=== PATIENT | female | born 1985 | race Caucasian/White ===

== ENCOUNTER 2019-07-23 11:42 | Emergency (ER) | payer SELFPAY ==
[2019-07-23 12:14] VITALS: BP 103/64; PULSE 72; TEMP 99.5; BMI 32.0
--- NOTE | 2019-07-23 12:44 | PDOC ---
History of Present Illness - General Chief Complaint: Vaginal Bleeding Stated Complaint: LWR ABD PAIN Time Seen by Provider: 07/23/19 12:32 - History of Present Illness Initial Comments: 07/23/19 12:44 CHIEF COMPLAINT: vag bldg in HISTORY OF PRESENT ILLNESS: 34 yo A1 F presents to ED with vaginal bleeding in . LMP was 12/6, patient states she had a positive test last night but began spotting today when she wiped. Patient reports lower abdominal cramping. Patient denies headache, lightheadedness, dizziness, SOB, palpitations. No recent travel or sick contacts. PAST MEDICAL HISTORY: Denies past medical history FAMILY HISTORY: Denies SOCIAL HISTORY: Denies tobacco, alcohol, illicit drug use. SURGICAL HISTORY: Denies ALLERGIES: No known drug allergies REVIEW OF SYSTEMS General/Constitutional: Denies fever or chills. Denies weakness, weight change. HEENT: Denies change in vision. Denies ear pain or discharge. Denies sore throat. Cardiovascular: Denies chest pain or shortness of breath. Respiratory: Denies cough, wheezing, or hemoptysis. Gastrointestinal: Lower abdominal cramping. Denies nausea, vomiting, diarrhea or constipation. Denies rectal bleeding. Genitourinary: Vaginal spotting since this morning. Denies dysuria, frequency, or change in urination. Musculoskeletal: Denies joint or muscle swelling or pain. Denies neck or back pain. Skin: Denies rash or easy bruising. Neurologic: Denies headache, vertigo, loss of consciousness, or loss of sensation. Psychiatric: Denies depression or anxiety. PHYSICAL EXAM General Appearance: Well-appearing, appropriately dressed. No apparent distress. HEENT: EOMI, PERRLA, normal ENT inspection, normal voice, TMs normal, pharynx normal. No conjunctival pallor. No photophobia, scleral icterus. Neck: Supple. Trachea midline. No tenderness, rigidity, carotid bruit, stridor , lymphadenopathy, or thyromegaly. Respiratory/Chest: Lungs CTAB. No shortness of breath, chest tenderness, respiratory distress, accessory muscle use. No crackles, rales, rhonchi, stridor , wheezing, dullness Cardiovascular: RRR. S1, S2. No JVD, murmur, bradycardia, tachycardia. Vascular Pulses: Dorsalis-Pedis (R): 2+, Dorsalis-Pedis (L): 2+ Gastrointestinal/Abdominal: Normal bowel sounds. Abdomen soft, non-distended. No tenderness or rebound tenderness. No organomegaly, pulsatile mass, guarding , hernia, hepatomegaly, splenomegaly. Pelvic: External genitalia normal without lesions. Vaginal vault with bloody discharge. Cervix is long and closed. No cervical motion tenderness. Uterus is nontender and normal in size. Adnexa are nontender and without masses. Lymphatic: No adenopathy, tenderness. Musculoskeletal/Extremities: Normal inspection. FROM of all extremities, normal capillary refill. Pelvis Stable. No CVA tenderness. No tenderness to extremities, pedal edema, swelling, erythema or deformity. Integumentary: Appropriate color, dry, warm. No cyanosis, erythema, jaundice or rash Neurologic: stenographic court reporter II-XII intact. Fully oriented, alert. Appropriate mood/affect. Motor strength 5/5. No appreciable EOM palsy, facial droop or sensory deficit. Past History - Past Medical History Allergies/Adverse Reactions: Allergies Allergy/AdvReac Type Severity Reaction Status Date / Time latex [Latex] Allergy Unknown Verified 07/23/19 12:05 aspirin Allergy Hives Verified 07/23/19 12:05 Asthma: No Cancer: No Cardiac Disorders: No COPD: No Diabetes: No HTN: No Seizures: No Thyroid Disease: No - Reproductive History Is Patient Now?: Yes (#): 5 Para: 3 Cervical CA: No Dysfunctional Uterine Bleeding: No Ectopic : No Endometrial CA: No Polycystic Ovaries: No Therapeutic (s) & number: No Tubal Ligation: No Spontaneous : 1 - Immunization History Immunization Up to Date: Yes - Psycho Social/Smoking Cessation Hx Smoking Status: No Smoking History: Never smoked Have you smoked in the past 12 months: No Number of Cigarettes Smoked Daily: 0 Information on smoking cessation initiated: No Hx Alcohol Use: No Drug/Substance Use Hx: No *Physical Exam - Vital Signs Last Vital Signs Temp Pulse Resp BP Pulse Ox 99.5 F 72 18 103/64 96 07/23/19 12:05 07/23/19 12:05 07/23/19 12:05 07/23/19 12:05 07/23/19 12:05 ED Treatment Course - LABORATORY CBC & Chemistry Diagram: 07/23/19 12:57 07/23/19 12:57 - RADIOLOGY Radiology Studies Ordered: Category Date Time Status TRANSVAGINAL US PREG [US] Stat Ultrasound 07/23/19 12:40 Ordered Medical Decision Making - Medical Decision Making 07/23/19 14:02 34 yo A1 F presents to ED with vaginal bleeding in . -labs, T&S, urine, ct/gc/trich -TVUS 07/23/19 14:42 Patient Rh+, Rhogam not indicated. 07/23/19 15:14 beta 66 Advised patient return in 2 days for repeat beta. Advised patient of signs and symptoms for return to ED. Patient verbalized understanding and agrees to plan. Discharge - Discharge Information Problems reviewed: Yes Clinical Impression/Diagnosis: Threatened in early Condition: Stable Disposition: HOME - Admission No - Follow up/Referral Referrals: Alda Jesus MD [Staff Physician] - - Patient Discharge Instructions Patient Printed Discharge Instructions: DI for Threatened Additional Instructions: As discussed you must return in 48 hours for repeat blood work for further evaluation of your vaginal bleeding in . If you develop a severe vaginal bleeding (more than 1 soaked pad an hour), lightheaded, dizziness, shortness of breath, palpitations or any new or worsening symptoms, please return to the ER. - Post Discharge Activity
[2019-07-23 13:13] LABS: BASO % 0.8 % (0-2.0); EOS % 1.4 % (0-4.5); HEMATOCRIT 41.7 % (32.4-45.2); LYMPH % 32.5 % (8-40); MCH 32.2 pg (25.7-33.7); MCHC 33.7 g/dl (32.0-36.0); MEAN CELL VOLUME 95.5 fl (80-96); MEAN PLT VOLUME 8.6 fl (7.5-11.1); MONO % 6.9 % (3.8-10.2); NEUT % 58.4 % (42.8-82.8); PLATELET COUNT 262 K/MM3 (134-434); RBC 4.37 M/mm3 (3.60-5.2); RDW 12.6 % (11.6-15.6); WHITE BLOOD COUNT 5.7 K/mm3 (4.0-10.0)
[2019-07-23 14:04] LABS: BILIRUBIN,TOTAL 0.4 mg/dL (0.2-1); BLOOD UREA NITROGEN 9.5 mg/dL (7-18); CALCIUM 8.6 mg/dL (8.5-10.1); CREATININE 0.7 mg/dL (0.55-1.3); POTASSIUM 3.7 mmol/L (3.5-5.1); TOT PROT 7.7 g/dl (6.4-8.2)
[2019-07-23 14:20] LABS: EPI CELLS 0.3 /HPF (0-5/HPF); HYALINE CASTS 0 /lpf (0-8); URINE APPEARANCE CLEAR; URINE BACTERIA 5.5 /hpf (NEGATIVE); URINE BILIRUBIN NEGATIVE (NEGATIVE); URINE COLOR YELLOW; URINE GLUCOSE (UA) NEGATIVE (NEGATIVE); URINE KETONE NEGATIVE (NEGATIVE); URINE LEUK ESTERASE NEGATIVE (NEGATIVE); URINE NITRITE NEGATIVE (NEGATIVE); URINE PROTEIN NEGATIVE (NEGATIVE); URINE RBC 0 /hpf (0-4); URINE UROBILINOGEN 0.2 mg/dL (0.2-1.0); URINE WBC 0 /hpf (0-5)
== END 2019-07-23 15:37 | disposition home or self-care (01) ==
LOC: JER 11:42
DX: O26.891 Other specified pregnancy related conditions, first trimester (principal); O20.0 Threatened abortion; Z3A.01 Less than 8 weeks gestation of pregnancy; Z88.6 Allergy status to analgesic agent; Z91.040 Latex allergy status
CPT/HCPCS: 36415; 76817-TC; 80053; 81003; 84702; 85025; 86850; 86900; 86901; 87086; 87491; 87591; 87661; 99282-25

== ENCOUNTER 2019-08-05 16:27 | Emergency (ER) | payer SELFPAY ==
[2019-08-05 16:44] VITALS: BP 131/67; PULSE 68; TEMP 98.1; BMI 25.6
--- NOTE | 2019-08-05 16:44 | PDOC ---
Rapid Medical Evaluation Medical Evaluation: Allergies Allergy/AdvReac Type Severity Reaction Status Date / Time latex [Latex] Allergy Unknown Verified 07/23/19 12:05 aspirin Allergy Hives Verified 07/23/19 12:05 08/05/19 16:37 I have performed a brief in-person evaluation of this patient. The patient presents with a chief complaint of:vaginal bleeding x 3 days w/ abd pain. 7 weeks . (s/p spon AB x 1 ). Seen here on 07/23 for vag bleed with normal labs, beta 66 w/ no e/o on US. States she saw Nguyen Nix today who referred her to ED Pertinent physical exam findings:stable I have ordered the following:labs/US The patient will proceed to the ED for further evaluation Discharge Disposition - Diagnosis Threatened - Referrals - Patient Instructions - Post Discharge Activity
[2019-08-05 17:36] LABS: EPI CELLS 0.5 /HPF (0-5/HPF); HYALINE CASTS 0 /lpf (0-8); URINE APPEARANCE CLEAR; URINE BACTERIA 18.2 /hpf (NEGATIVE); URINE BILIRUBIN NEGATIVE (NEGATIVE); URINE COLOR YELLOW; URINE GLUCOSE (UA) NEGATIVE (NEGATIVE); URINE KETONE NEGATIVE (NEGATIVE); URINE LEUK ESTERASE NEGATIVE (NEGATIVE); URINE NITRITE NEGATIVE (NEGATIVE); URINE PROTEIN NEGATIVE (NEGATIVE); URINE RBC 7 /hpf (0-4); URINE UROBILINOGEN 0.2 mg/dL (0.2-1.0); URINE WBC 0 /hpf (0-5)
[2019-08-05] MEDS ORDERED: ACETAMINOPHEN 500 MG TABLET (FP) PO ONE (18:18)
[2019-08-05] MEDS ORDERED: ACETAMINOPHEN 325 MG TABLET (FP) ONE (18:23)
--- NOTE | 2019-08-05 18:24 | PDOC ---
History of Present Illness - General Chief Complaint: Vaginal Bleeding Stated Complaint: 7 WK WA/VAGINAL BLEEDING Time Seen by Provider: 08/05/19 16:43 - History of Present Illness Initial Comments: 34F A1 LMP 06/24/19 presenting with 2 days of vaginal spotting and on/off sharp lower abdominal pain with occasional radiation to the back. Denies vaginal discharge, f/c, n/v, dysuria, cp/sob, headache. BUCKRAM SEWER: Nguyen Nix Past History - Past Medical History Allergies/Adverse Reactions: Allergies Allergy/AdvReac Type Severity Reaction Status Date / Time latex [Latex] Allergy Unknown Verified 08/12/19 11:19 aspirin Allergy Hives Verified 08/12/19 11:19 Home Medications: Ambulatory Orders NK [No Known Home Medication] 08/12/19 Asthma: No Cancer: No Cardiac Disorders: No COPD: No Diabetes: No HTN: No Seizures: No Thyroid Disease: No - Reproductive History Is Patient Now?: Yes (#): 5 Para: 3 Cervical CA: No Dysfunctional Uterine Bleeding: No Ectopic : No Endometrial CA: No Polycystic Ovaries: No Therapeutic (s) & number: No Tubal Ligation: No Spontaneous : 1 - Immunization History Immunization Up to Date: Yes - Psycho Social/Smoking Cessation Hx Smoking Status: No Smoking History: Never smoked Have you smoked in the past 12 months: No Number of Cigarettes Smoked Daily: 0 Hx Alcohol Use: No Drug/Substance Use Hx: No Review of Systems - Review of Systems Able to Perform ROS?: Yes Comments:: CONSTITUTIONAL: Denies F / C HEENT: Denies headache, lightheadedness, dizziness, changes in vision / hearing RESP: Denies SOB, cough CARD: Denies chest pain, palpitations GI: Endorses abdominal pain. Denies N / V / D, bloody stool, inability to tolerate PO : Denies dysuria SKIN: Denies rashes NEURO: Denies numbness, tingling, weakness MSK: Endorses occasional low back pain *Physical Exam - Vital Signs Last Vital Signs Temp Pulse Resp BP Pulse Ox 98.1 F 68 18 131/67 100 08/05/19 16:41 08/05/19 16:41 08/05/19 16:41 08/05/19 16:41 08/05/19 16:41 - Physical Exam GEN: Well appearing, NAD, comfortable. AAOx3. HEENT: NC/AT. No facial asymmetry. Moist mucous membranes. Normal voice. Supple neck w/ FROM. CV: S1/S2, RRR, no m/r/g LUNG: CTAB, no wheezes, crackles, rales, rhonchi. GI: +TTP of the lower quadrants, soft, nondistending, +BS, no guarding, no rebound. No masses. Neg CVAT b/l. PELVIC: Exam chaperoned by KHADIJAH Thrasher. No discharge, bleeding, and atrophy on inspection. Cervical os closed with no active bleeding but there is scant blood in vault. Neg CMT on bimanual exam. EXTREMITIES: No obvious deformities of all extremities. SKIN: Warm, dry, no rashes appreciated. PSYCH: Normal mood and affect. NEURO: Moving all extremities well. Ambulates w/ normal gait. ED Treatment Course - LABORATORY CBC & Chemistry Diagram: 08/05/19 19:10 08/05/19 19:10 - ADDITIONAL ORDERS Additional order review: Laboratory Results 08/05/19 08/05/19 17:01 17:01 Beta HCG, Quant 341.3 Urine Color Yellow Urine Appearance Clear Urine pH 5.0 Ur Specific [place] 1.008 L Urine Protein Negative Urine Glucose (UA) Negative Urine Ketones Negative Urine Blood 2+ H Urine Nitrite Negative Urine Bilirubin Negative Urine Urobilinogen 0.2 Ur Leukocyte Esterase Negative Urine WBC (Auto) 0 Urine RBC (Auto) 7 Urine Casts (Auto) 0 U Epithel Cells (Auto) 0.5 Urine Bacteria (Auto) 18.2 Medical Decision Making - Medical Decision Making 08/05/19 18:18 34F A1 LMP 06/24/19 presenting with 2 days of vaginal spotting w/ lower abdominal pain. RME labs: b-hcg, ua will add cbc, cmp, T&S tylenol for pain 08/05/19 19:15 On hold for Nguyen Nix's office for 15 minutes Will page our on-call BUCKRAM SEWER 08/05/19 19:20 TVUS IMPRESSION: Clinical information: 7 weeks with vaginal bleeding No intrauterine gestation or gestational sac is seen. In comparison to a prior ultrasound exam of 07/23/2019 apparent interval development of an approximately 2 x 1.3 cm soft tissue structure is seen within the left adnexa which appears separate from the ovary and uterus suggestive of an ectopic . No associated gestational sac or embryonic pole is identified. Development of a small amount of free fluid is noted within the cul-de-sac. A 0.5 cm subendometrial fluid accumulation is seen posteriorly at the level of the body without gross interval change. Endometrial thickness appears unremarkable measuring 0.5 cm. No discrete myometrial pathology is noted. The ovaries appear unremarkable demonstrating several subcentimeter follicles bilaterally. No Doppler evidence of ovarian torsion. Impression: No intrauterine is identified. A 2 x 1.3 cm left adnexal soft tissue structure is noted which may represent a tubal as noted above. A small amount of free fluid is now seen within the cul-de-sac. 08/05/19 19:42 d/w Dr. Jesus: good candidate for MTX IM 50mg/m2 = 82mg; f/u for rpt HCG in 4 days; pt will experience some pain and discomfort she can take tylenol for pt feeling better s/p tylenol discussed ultrasound results w/ pt and informed her of nonviable . Pt was tearful but understanding. Accepted methotrexate. 08/05/19 21:31 MTX pushed IM in the right buttocks, pt tolerated well. DC home w/ 4 days f/u and return precautions Discharge - Discharge Information Problems reviewed: Yes Clinical Impression/Diagnosis: Threatened Condition: Stable Disposition: HOME - Admission No - Follow up/Referral Referrals: Nguyen Nix CNM [Primary Care Provider] - - Patient Discharge Instructions Patient Printed Discharge Instructions: DI for Ectopic , DI for Miscarriage Additional Instructions: You were found to have an ectopic . This is a nonviable . We gave you a medication (Methotrexate) that will help you with the miscarriage. We expect you to feel some cramping pain during this time. Take Tylenol 1000mg every 6 hours as needed for pain. Your B-hCG is 341 (08/05/19) Follow up in 4 days for repeat lab work. You may come back to the Emergency Department or go to your [facility] SE[facility] to do this. Immediately return to the nearest Emergency Department if you experience: - worsening or severe pain - heavy vaginal bleeding (soaking 1 pad an hour for two consecutive hours) - fevers - chest pain, shortness of breath - inability to tolerate food or drink - anything that concerns you Se descubri que evangelist un embarazo ectpico. Ursula es un embarazo no viable. Le dimos un medicamento (metotrexato) que lo ayudar con el aborto espontneo. Esperamos que sienta un poco de calambres maribel ursula tiempo. [place] Tylenol 1000mg cada 6 horas segn sea necesario para el dolor. B-hCG = 341 (08/05/19) Olga un seguimiento en 4 garrett para repetir el trabajo de laboratorio. Puede volver al Departamento de emergencias o ir a araiza obstetra / gineclogo para hacer esto. Regrese de inmediato al departamento de emergencias ms cercano si experimenta: - empeoramiento o dolor intenso - sangrado vaginal abundante (remojo 1 almohadilla por hora maribel dos horas consecutivas) - fiebres - dolor en el pecho, falta de aliento - incapacidad para tolerar alimentos o bebidas - cualquier cosa que te preocupe Print Language: GERMAN - Post Discharge Activity
[2019-08-05 19:41] LABS: BASO % 0.5 % (0-2.0); HEMATOCRIT 40.9 % (32.4-45.2); HEMOGLOBIN 13.8 GM/dL (10.7-15.3); LYMPH % 39.9 % (8-40); MCH 32.2 pg (25.7-33.7); MCHC 33.7 g/dl (32.0-36.0); MEAN CELL VOLUME 95.4 fl (80-96); MEAN PLT VOLUME 8.6 fl (7.5-11.1); MONO % 6.6 % (3.8-10.2); PLATELET COUNT 274 K/MM3 (134-434); RBC 4.29 M/mm3 (3.60-5.2); RDW 12.4 % (11.6-15.6); WHITE BLOOD COUNT 6.2 K/mm3 (4.0-10.0)
[2019-08-05] MEDS ORDERED: METHOTREXATE SODIUM/PF 25 MG/ML VIAL IM ONE (19:47)
[2019-08-05 20:14] LABS: ALBUMIN 4.4 g/dl (3.4-5.0); BILIRUBIN,TOTAL 0.5 mg/dL (0.2-1); BLOOD UREA NITROGEN 7.7 mg/dL (7-18); CALCIUM 9.3 mg/dL (8.5-10.1); CREATININE 0.6 mg/dL (0.55-1.3); POTASSIUM 4.2 mmol/L (3.5-5.1)
--- NOTE | 2019-08-05 21:07 | PDOC ---
Documentation entered by Anna Marie Panchal SCRIBE, acting as scribe for Jeanna Perry MD. Jeanna Perry MD: This documentation has been prepared by the ayeibe, Anna Marie Panchal SCRIBE, under my direction and personally reviewed by me in its entirety. I confirm that the documentation accurately reflects all work, treatment, procedures, and medical decision making performed by me. Attending Attestation - Resident Resident Name: Marc Caballero - ED Attending Attestation I have performed the following: I have examined & evaluated the patient, The case was reviewed & discussed with the resident, I agree w/resident's findings & plan, Exceptions are as noted - HPI HPI: 08/05/19 18:53 The patient is a 34-year-old female, A1, with no reported past medical history who presents to the emergency department with vaginal spotting and abdominal pain. The patient presents with 2 days of vaginal spotting and intermittent episodes of lower abdominal pain radiating to the back. sees Nguyen nix. no other complaints. LMP: 06/24 Allergies: latex and ASA BRASS CLEANER: Nguyen Nix. 08/05/19 21:03 - Physicial Exam PE: 08/05/19 21:04 Awake alert no acute distress lungs are clear bilaterally heart is regular 30 murmurs rubs or gallops abdomen is soft nontender extremities are warm well perfused skin is warm and dry no CVA tenderness - Medical Decision Making 08/05/19 21:04 34-year-old female currently 7 weeks by date here complaining of vaginal spotting and lower abdominal pain ultrasound was obtained to rule out ectopic versus threatened AB versus AB in progress. Ultrasound shows a questionable left adnexal mass concerning for possible tubal . Beta hCG is low for patient states discussed with on-call OB Dr. Guerra. recommends methotrexate states she meets criteria patient was explained risks and benefits was given methotrexate told to return for any severe worsening pain was also given Tylenol for her mild cramping
== END 2019-08-05 21:46 | disposition home or self-care (01) ==
LOC: JER 16:27
PROC: 3E023GC Introduction of Other Therapeutic Substance into Muscle, Percutaneous Approach (ICD-10-PCS; principal; 2019-08-05)
DX: N93.9 Abnormal uterine and vaginal bleeding, unspecified (principal); Z88.8 Allergy status to other drugs, medicaments and biological substances; Z91.040 Latex allergy status; O26.891 Other specified pregnancy related conditions, first trimester; Z3A.01 Less than 8 weeks gestation of pregnancy
CPT/HCPCS: 36415; 76817-TC; 80053; 81003; 84702; 85025; 86850; 86900; 86901; 99283-25; J9260

== ENCOUNTER 2019-08-12 11:17 | Emergency (ER) | payer OTHER ==
[2019-08-12 11:35] VITALS: BMI 25.7
--- NOTE | 2019-08-12 12:22 | PDOC ---
History of Present Illness - General Chief Complaint: Revisit, Lab Variance Stated Complaint: RELATED Time Seen by Provider: 08/12/19 11:43 History Source: Patient Exam Limitations: Clinical Condition - History of Present Illness Initial Comments: 08/12/19 12:18 Patient with no significant past medical history will confirm left ectopic on February 02 present for repeat beta-hCG status for methotrexate a week ago. Patient had a vaginal ultrasound which confirmed a left ectopic and received methotrexate in which she followed up with a [facility] 3 days ago for day for methotrexate treatment with beta hCG of 369 with patient bring results with her today. Patient report had vaginal bleeding for the first 2 days after methotrexate and I have no bleeding since then. Denies any vaginal bleeding now. Denies dizziness, chest pain, palpitation, shortness of breath. Denies any other symptoms Is this a multiple visit Asthma Patient?: No Timing/Duration: 1 week Past History - Past Medical History Allergies/Adverse Reactions: Allergies Allergy/AdvReac Type Severity Reaction Status Date / Time latex [Latex] Allergy Unknown Verified 08/12/19 11:19 aspirin Allergy Hives Verified 08/12/19 11:19 Home Medications: Ambulatory Orders NK [No Known Home Medication] 08/12/19 Asthma: No Cancer: No Cardiac Disorders: No COPD: No Diabetes: No HTN: No Seizures: No Thyroid Disease: No - Reproductive History (#): 5 Para: 3 Cervical CA: No Dysfunctional Uterine Bleeding: No Ectopic : No Endometrial CA: No Polycystic Ovaries: No Therapeutic (s) & number: No Tubal Ligation: No Spontaneous : 1 - Immunization History Immunization Up to Date: Yes - Psycho Social/Smoking Cessation Hx Smoking Status: No Smoking History: Never smoked Have you smoked in the past 12 months: No Number of Cigarettes Smoked Daily: 0 Hx Alcohol Use: No Drug/Substance Use Hx: No Review of Systems - Review of Systems Able to Perform ROS?: Yes Is the patient limited Belarusian proficient: No Constitutional: No: Chills, Fever, Malaise HEENTM: No: Symptoms Reported, See HPI, Eye Pain, Blurred Vision, Tearing, Recent change in vision, Double Vision, Cataracts, Ear Pain, Ocular Prothesis, Ear Discharge, Nose Pain, Nose Congestion, Tinnitus, Nose Bleeding, Hearing Loss , Throat Pain, Throat Swelling, Mouth Pain, Dental Problems, Difficulty Swallowing, Mouth Swelling, Other Respiratory: No: Symptoms reported, See HPI, Cough, Orthopnea, Shortness of Breath, SOB with Exertion, SOB at Rest, Stridor, Wheezing, Productive cough, Hemoptysis, Other Cardiac (ROS): No: Symptoms Reported, See HPI, Chest Pain, Edema, Irregular Heart Rate, Lightheadedness, Palpitations, Syncope, Chest Tightness, Other ABD/GI: No: Symptoms Reported, See HPI, Nausea, Vomiting, Abdominal cramping : No: Symptoms Reported, Dysuria, Discharge, Frequency, Urgency, Other ( vaginal bleeding) Musculoskeletal: No: Symptoms Reported All Other Systems: Reviewed and Negative *Physical Exam - Vital Signs Last Vital Signs Temp Pulse Resp BP Pulse Ox 98.5 F 64 16 121/66 99 08/12/19 11:32 08/12/19 11:32 08/12/19 11:32 08/12/19 11:32 08/12/19 11:32 - Physical Exam General Appearance: Yes: Nourished, Appropriately Dressed. No: Apparent Distress HEENT: positive: Normal ENT Inspection Neck: positive: Supple Respiratory/Chest: positive: Lungs Clear, Normal Breath Sounds. negative: Respiratory Distress, Accessory Muscle Use Cardiovascular: positive: Regular Rhythm, Regular Rate Musculoskeletal: positive: Normal Inspection Extremity: positive: Normal Inspection Integumentary: positive: Normal Color Neurologic: positive: Fully Oriented, Alert, Normal Response Medical Decision Making - Medical Decision Making 08/12/19 12:19 Patient with confirmed ectopic present for day 7 of methotrexate follow-up for repeat beta-hCG. Patient had hCG done 3 days ago for day for methotrexate treatment with beta-hCG of 369 from [facility] office. Patient reported no complication from methotrexate with no dizziness or acute symptoms. Patient with no vaginal bleeding now. Will order beta-hCG to evaluate for day 7 of methotrexate treatment which beta-hCG showed drop at least 30% from day 4 08/12/19 13:06 beta hcg today is 164 which is more than 50% drop from day 4 which is an appropriate drop. pt advised she will need serial beta hcg weekly until neg and pt voiced understanding and will f/u with her [facility] F[facility]DER [facility] in a week for repeat beta hcg. Pt asymptomatic now and stable for discharge with strict f/u Discharge - Discharge Information Problems reviewed: Yes Clinical Impression/Diagnosis: Ectopic Qualifiers: Location of ectopic : tubal Intrauterine status: without intrauterine Laterality: left Qualified Code(s): O00.102 - Left tubal without intrauterine Condition: Improved Disposition: HOME - Admission No - Follow up/Referral - Patient Discharge Instructions Additional Instructions: Your hormone level is 164 which is a 50% drop from lab work done from your [facility] office of hormone level 369. Follow-up back with your [facility] a week for repeat hormone onset negative . Come back to emergency room if worsening abdominal pain, dizziness, palpitation. - Post Discharge Activity
[2019-08-12 13:19] VITALS: BP 126/78; PULSE 72; TEMP 98.2
== END 2019-08-12 13:19 | disposition home or self-care (01) ==
LOC: JER 11:17
DX: O00.102 Left tubal pregnancy without intrauterine pregnancy (principal); Z88.8 Allergy status to other drugs, medicaments and biological substances; Z91.040 Latex allergy status
CPT/HCPCS: 36415; 84702; 99282-25

== ENCOUNTER 2019-09-09 23:01 | Emergency (ER) | payer OTHER ==
[2019-09-09 23:06] VITALS: BP 113/64; PULSE 67; BMI 24.7
[2019-09-09] MEDS ORDERED: METHOTREXATE SODIUM/PF 25 MG/ML VIAL IM ONE (23:43)
--- NOTE | 2019-09-10 00:58 | PDOC ---
History of Present Illness - General Chief Complaint: Revisit, Lab Variance Stated Complaint: FOLLOW UP Time Seen by Provider: 09/09/19 23:27 History Source: Patient Exam Limitations: No Limitations Past History - Past Medical History Allergies/Adverse Reactions: Allergies Allergy/AdvReac Type Severity Reaction Status Date / Time latex [Latex] Allergy Unknown Verified 09/09/19 23:06 aspirin Allergy Hives Verified 09/09/19 23:06 Home Medications: Ambulatory Orders NK [No Known Home Medication] 08/12/19 Asthma: No Cancer: No Cardiac Disorders: No COPD: No Diabetes: No HTN: No Seizures: No Thyroid Disease: No - Reproductive History (#): 5 Para: 3 Cervical CA: No Dysfunctional Uterine Bleeding: No Ectopic : No Endometrial CA: No Polycystic Ovaries: No Therapeutic (s) & number: No Tubal Ligation: No Spontaneous : 1 - Immunization History Immunization Up to Date: Yes - Psycho Social/Smoking Cessation Hx Smoking Status: No Smoking History: Never smoked Have you smoked in the past 12 months: No Number of Cigarettes Smoked Daily: 0 Hx Alcohol Use: No Drug/Substance Use Hx: No *Physical Exam - Vital Signs Last Vital Signs Temp Pulse Resp BP Pulse Ox 99.8 F H 67 18 113/64 99 09/09/19 23:03 09/09/19 23:03 09/09/19 23:03 09/09/19 23:03 09/09/19 23:03 - Physical Exam General Appearance: No: Apparent Distress Respiratory/Chest: positive: Lungs Clear, Normal Breath Sounds. negative: Respiratory Distress Cardiovascular: positive: Regular Rhythm, Regular Rate, S1, S2. negative: Murmur Gastrointestinal/Abdominal: positive: Normal Bowel Sounds, Soft. negative: Tender, Distended, Guarding, Rebound Neurologic: positive: Alert Medical Decision Making - Medical Decision Making 34 y/o F recently diagnosed with ectopic 08/05 s/p receiving Methotrexate x1 was advised to return to ED by her MUSIC LEADER to receive another dose of methotrexate as was told her Bhcg had not dropped appropriately. Patient was seen in ED 08/12 with appropriate drop in Bhcg so second dose of methotrexate was not given. Patient had Bhcg of 52.7 on 08/25 and 51 on 09/01. Mentions having light vaginal bleeding from yesterday. Denies fever, sob, cp, abd pain, pelvic pain, n/v, urinary sxs. D/W SHEET METAL INSTALLER personal injury litigation paralegal, Dr. Denise, who states it is okay to give second dose of Methotrexate a month after the prior dose second dose was given stable for dc 09/10/19 00:52 Discharge - Discharge Information Problems reviewed: Yes Clinical Impression/Diagnosis: Follow up Condition: Stable Disposition: HOME - Admission No - Follow up/Referral Referrals: Nguyen Nix CNM [Primary Care Provider] - - Patient Discharge Instructions Additional Instructions: Thank you for choosing [facility]. It was a pleasure taking care of you. Follow-up with your MUSIC LEADER in 1 week regarding your and for repeat blood work Return to the Emergency Department for any other concerning symptoms. - Post Discharge Activity
[2019-09-10 01:07] VITALS: TEMP 98.7
== END 2019-09-10 01:21 | disposition home or self-care (01) ==
LOC: JER 23:01
PROC: 3E023GC Introduction of Other Therapeutic Substance into Muscle, Percutaneous Approach (ICD-10-PCS; principal; 2019-09-09)
DX: Z87.59 Personal history of other complications of pregnancy, childbirth and the puerperium (principal); O00.90 Unspecified ectopic pregnancy without intrauterine pregnancy; Z79.899 Other long term (current) drug therapy; Z91.040 Latex allergy status; Z88.6 Allergy status to analgesic agent
CPT/HCPCS: 96372; 99284-25; J9260

== ENCOUNTER 2021-03-04 23:40 | Emergency (ER) | payer OTHER ==
[2021-03-04 23:59] VITALS: BP 124/79; PULSE 64; TEMP 98.1; BMI 24.7
[2021-03-05 02:29] LABS: BASO % 0.7 % (0-2.0); EOS % 1.4 % (0-4.5); HEMATOCRIT 37.7 % (32.4-45.2); LYMPH % 38.3 % (8-40); MCH 32.3 pg (25.7-33.7); MCHC 34.5 g/dl (32.0-36.0); MEAN CELL VOLUME 93.8 fl (80-96); MEAN PLT VOLUME 8.4 fl (7.5-11.1); NEUT % 52.6 % (42.8-82.8); PLATELET COUNT 257 10^3/uL (134-434); RBC 4.02 M/mm3 (3.60-5.2); RDW 12.8 % (11.6-15.6); WHITE BLOOD COUNT 9.1 K/mm3 (4.0-10.0)
[2021-03-05 02:41] LABS: INR 0.98 (0.83-1.09); PROTHROMBIN TIME (PATIENT) 11.9 SEC (9.7-13.0)
[2021-03-05 02:48] LABS: CALCIUM 8.4 mg/dL (8.5-10.1)
[2021-03-05 02:49] LABS: BLOOD UREA NITROGEN 11.7 mg/dL (7-18)
[2021-03-05 02:52] LABS: CREATININE 0.6 mg/dL (0.55-1.3)
[2021-03-05 02:53] LABS: BILIRUBIN,TOTAL 0.3 mg/dL (0.2-1); TOT PROT 7.6 g/dl (6.4-8.2)
[2021-03-05 03:43] LABS: URINE APPEARANCE Clear; URINE BILIRUBIN Negative (NEGATIVE); URINE COLOR Yellow; URINE GLUCOSE (UA) Negative (NEGATIVE); URINE KETONE Negative (NEGATIVE); URINE LEUK ESTERASE Negative (NEGATIVE); URINE NITRITE Negative (NEGATIVE); URINE PROTEIN Negative (NEGATIVE); URINE UROBILINOGEN 0.2 mg/dL (0.2-1.0)
== END 2021-03-05 03:52 | disposition home or self-care (01) ==
LOC: JER 23:40
DX: O20.0 Threatened abortion (principal)
CPT/HCPCS: 36415; 76817-TC; 80053; 81003; 84702; 85025; 85610; 85730; 87077; 87086; 99284-25

== ENCOUNTER 2021-03-07 10:34 | Emergency (ER) | payer OTHER ==
[2021-03-07 10:49] VITALS: BP 115/69; PULSE 52; TEMP 98.1; BMI 26.4
== END 2021-03-07 14:16 | disposition home or self-care (01) ==
LOC: JER 10:34
DX: O20.0 Threatened abortion (principal); Z3A.01 Less than 8 weeks gestation of pregnancy
CPT/HCPCS: 36415; 76817-TC; 84702; 99284-25

== ENCOUNTER 2021-03-10 22:45 | Emergency (ER) | payer OTHER ==
[2021-03-10 22:55] VITALS: BP 118/74; PULSE 73; TEMP 97.9; BMI 26.4
[2021-03-10] MEDS ORDERED: ACETAMINOPHEN 500 MG TABLET (FP) PO ONE (23:22)
[2021-03-10 23:49] LABS: BASO % 0.6 % (0-2.0); EOS % 2.2 % (0-4.5); HEMATOCRIT 38.8 % (32.4-45.2); HEMOGLOBIN 13.3 GM/dL (10.7-15.3); LYMPH % 30.2 % (8-40); MCH 32.2 pg (25.7-33.7); MCHC 34.4 g/dl (32.0-36.0); MEAN CELL VOLUME 93.7 fl (80-96); MEAN PLT VOLUME 8.3 fl (7.5-11.1); MONO % 6.3 % (3.8-10.2); NEUT % 60.7 % (42.8-82.8); PLATELET COUNT 274 10^3/uL (134-434); RBC 4.14 M/mm3 (3.60-5.2); RDW 12.5 % (11.6-15.6); WHITE BLOOD COUNT 7.6 K/mm3 (4.0-10.0)
[2021-03-10] MEDS ORDERED: ACETAMINOPHEN 325 MG TABLET (FP) ONE (23:50)
== END 2021-03-11 01:07 | disposition home or self-care (01) ==
LOC: JER 22:45
DX: O03.9 Complete or unspecified spontaneous abortion without complication (principal); Z3A.09 9 weeks gestation of pregnancy
CPT/HCPCS: 36415; 84702; 85025; 99283-25

== ENCOUNTER 2021-05-27 19:20 | Emergency (ER) | payer OTHER ==
[2021-05-27 19:37] VITALS: BP 156/80; PULSE 72; TEMP 98.4; BMI 29.6
[2021-05-28 00:52] LABS: EOS % 1.1 % (0-4.5); HEMATOCRIT 38.4 % (32.4-45.2); HEMOGLOBIN 13.2 GM/dL (10.7-15.3); LYMPH % 40.3 % (8-40); MCHC 34.5 g/dl (32.0-36.0); MEAN CELL VOLUME 92.8 fl (80-96); MEAN PLT VOLUME 7.7 fl (7.5-11.1); MONO % 7.9 % (3.8-10.2); NEUT % 49.7 % (42.8-82.8); PLATELET COUNT 270 10^3/uL (134-434); RBC 4.14 M/mm3 (3.60-5.2); RDW 12.9 % (11.6-15.6); WHITE BLOOD COUNT 8.6 K/mm3 (4.0-10.0)
[2021-05-28 01:05] LABS: EPI CELLS 22 /uL (0-25.1); HYALINE CASTS 1 /uL (0-3.1); PH,URINE 5.5 (5.0-8.0); URINE APPEARANCE CLEAR; URINE BACTERIA 52 /uL (0-1359); URINE BILIRUBIN NEGATIVE (NEGATIVE); URINE COLOR YELLOW; URINE GLUCOSE (UA) NEGATIVE (NEGATIVE); URINE KETONE NEGATIVE (NEGATIVE); URINE LEUK ESTERASE NEGATIVE (NEGATIVE); URINE NITRITE NEGATIVE (NEGATIVE); URINE PROTEIN NEGATIVE (NEGATIVE); URINE RBC 23 /uL (0-23.9); URINE UROBILINOGEN 0.2 mg/dL (0.2-1.0); URINE WBC 1 /uL (0-25.8)
[2021-05-28] MEDS ORDERED: ACETAMINOPHEN 325 MG TABLET (FP) ONE (02:06)
[2021-05-28] MEDS ORDERED: ACETAMINOPHEN 325 MG TABLET (FP) PO ONE (02:06)
== END 2021-05-28 02:22 | disposition home or self-care (01) ==
LOC: JER 19:20
DX: O26.851 Spotting complicating pregnancy, first trimester (principal); Z3A.01 Less than 8 weeks gestation of pregnancy
CPT/HCPCS: 36415; 76817-TC; 81003; 84702; 85025; 86850; 86900; 86901; 99285-25

== ENCOUNTER 2022-06-06 09:38 | Inpatient (IN) | payer OTHER ==
[2022-06-06] MEDS: DEXTROSE 5%-LACTATED RINGERS 1,000 ML IV SCH ×2 (10:20→17:18)
[2022-06-06 11:12] VITALS: BMI 32.3
[2022-06-06] MEDS ORDERED: DINOPROSTONE 10 MG VAGINAL SUPPOSITORY VG ONE (11:21)
[2022-06-06] MEDS ORDERED: PROMETHAZINE HCL 25 MG/1 ML VIAL IVPB ONE (11:22)
[2022-06-06] MEDS ORDERED: BUTORPHANOL TARTRATE 2 MG/ML VIAL IVPUSH PRN (11:22)
[2022-06-06 12:11] LABS: HEMATOCRIT 36.7 % (32.4-45.2); HEMOGLOBIN 12.5 GM/dL (10.7-15.3); MCH 32.3 pg (25.7-33.7); MEAN CELL VOLUME 94.9 fl (80-96); MEAN PLT VOLUME 8.8 fl (7.5-11.1); PLATELET COUNT 216 10^3/uL (134-434); RBC 3.87 M/mm3 (3.60-5.2); RDW 13.5 % (11.6-15.6)
[2022-06-06 12:18] LABS: INR 0.99 (0.83-1.09); PROTHROMBIN TIME (PATIENT) 11.4 SEC (9.7-13.0)
[2022-06-06 12:21] LABS: ACTIVATED PTT 29.1 SECONDS (25.2-36.5)
[2022-06-06 12:34] LABS: CALCIUM 8.5 mg/dL (8.5-10.1)
[2022-06-06 12:35] LABS: BLOOD UREA NITROGEN 9.3 mg/dL (7-18)
[2022-06-06 12:37] LABS: CREATININE 0.4 mg/dL (0.55-1.3)
[2022-06-06 13:23] LABS: ANISOCYTOSIS 0; HELMET CELLS 0; HOWELL-JOLLY BODIES 0; MACROCYTOSIS 0; OVALOCYTE 0; ROULEAU 0; SICKELED CELLS 0; TARGET CELLS 0; TEAR DROP CELLS 0; TOXIC GRANULATION 0
[2022-06-07] MEDS: DEXTROSE 5%-LACTATED RINGERS 1,000 ML IV SCH (00:55)
[2022-06-07] MEDS ORDERED: OXYTOCIN 30 UNITS in 0.9% NS 30 UNIT/500 ML INFUS.BAG IVPB SCH (02:00)
[2022-06-07] MEDS ORDERED: OXYTOCIN 30 UNITS in 0.9% NS 30 UNIT/500 ML INFUS.BAG IVPB ONE (03:02)
[2022-06-07] MEDS ORDERED: FENTANYL/BUPIVACAINE/NS/PF - PCEA - 50 ML DISP.SYRIN EP ONE ×3 (09:46→18:30)
[2022-06-07] MEDS ORDERED: SODIUM CHLORIDE 100 ML IVPB ONE ×3 (09:47→17:40)
[2022-06-07] MEDS ORDERED: AMPICILLIN SODIUM 2 GM VIAL ONE (09:47)
[2022-06-07] MEDS ORDERED: ELECTROLYTE-148 SOLN 500 ML IV ONE (10:00)
[2022-06-07] MEDS ORDERED: BUPIVACAINE HCL/PF 0.25% (2.5MG/ML) 10 ML VIAL ONE (10:04)
[2022-06-07] MEDS ORDERED: LIDOCAINE 1%/EPI 1:100000 (20 ML MULTI DOSE VIAL) ONE (10:04)
[2022-06-07] MEDS ORDERED: AMPICILLIN - 2 GM in SODIUM CHLORIDE 100 ML IVPB ONE (11:00)
[2022-06-07] MEDS ORDERED: ELECTROLYTE-148 SOLN 500 ML IV SCH (11:00)
[2022-06-07] MEDS ORDERED: NALOXONE HCL 0.4 MG/ML VIAL IVPUSH PRN (11:06)
[2022-06-07] MEDS: FENTANYL/BUPIVACAINE/NS/PF - PCEA - 50 ML DISP.SYRIN EP SCH ×3 (11:08→18:34)
[2022-06-07] MEDS: ELECTROLYTE-148 SOLN 1,000 ML IV SCH ×2 (11:32→16:44)
[2022-06-07] MEDS ORDERED: AMPICILLIN SODIUM 1 GM VIAL ONE ×2 (14:36→17:40)
[2022-06-07] MEDS: AMPICILLIN - 1 GM in SODIUM CHLORIDE 100 ML IVPB SCH ×2 (14:44→18:27)
[2022-06-07] MEDS ORDERED: LIDOCAINE HCL 1% PRESERVATIVE FREE - 30ML VIAL ONE (19:42)
[2022-06-07] MEDS ORDERED: OXYTOCIN 20 UNITS in 0.9% NS 20 UNIT/1,000 ML INFUS.BAG IV ONE (19:42)
[2022-06-07] MEDS ORDERED: METHYLERGONOVINE MALEATE 0.2 MG/1 ML AMP IM PRN (20:50)
[2022-06-07] MEDS ORDERED: BENZOCAINE 28 GM HEMORRHOIDAL OINTMENT TP PRN (20:50)
[2022-06-07] MEDS ORDERED: WITCH HAZEL 50% (TUCKS) 40 PAD/JAR PAD TP PRN (20:50)
[2022-06-07] MEDS ORDERED: BENZOCAINE 20% 57 GM BOTTLE TP PRN (20:50)
[2022-06-07] MEDS ORDERED: BISACODYL 10 MG SUPP.RECT RC PRN (20:50)
[2022-06-07] MEDS ORDERED: OXYTOCIN 20 UNITS in 0.9% NS 20 UNIT/1,000 ML INFUS.BAG IV SCH (21:00)
[2022-06-07 21:49] LABS: CORD BASE EXCESS -3.6 mmol/L (0-2); CORD HCO3 22.7 mmHg (20-29); CORD PCO2 45.6 mmHg (30-78); CORD pH 7.315 (7.14-7.44)
[2022-06-07 21:51] LABS: CORD BASE EXCESS -8.1 mmol/L (0-2); CORD HCO3 21.3 mmHg (20-29); CORD PCO2 59.1 mmHg (30-78); CORD pH 7.175 (7.14-7.44)
[2022-06-07] MEDS: oxyCODONE HCL 5 MG TABLET PO PRN (22:10)
[2022-06-07] MEDS: ACETAMINOPHEN 325 MG TABLET (FP) PO PRN (22:10)
[2022-06-07] MEDS ORDERED: ACETAMINOPHEN 325 MG TABLET (FP) ONE ×2 (22:13)
[2022-06-07] MEDS ORDERED: oxyCODONE HCL 5 MG TABLET ONE (22:14)
[2022-06-08] MEDS: AMPICILLIN - 1 GM in SODIUM CHLORIDE 100 ML IVPB SCH (01:03)
[2022-06-08] MEDS: ACETAMINOPHEN 325 MG TABLET (FP) PO PRN (07:45)
[2022-06-08 08:12] LABS: BASO % 0.1 % (0-2.0); EOS % 0.3 % (0-4.5); HEMATOCRIT 37.2 % (32.4-45.2); HEMOGLOBIN 12.7 GM/dL (10.7-15.3); LYMPH % 11.8 % (8-40); MCH 32.5 pg (25.7-33.7); MCHC 34.1 g/dl (32.0-36.0); MEAN CELL VOLUME 95.3 fl (80-96); MEAN PLT VOLUME 8.5 fl (7.5-11.1); MONO % 5.9 % (3.8-10.2); NEUT % 81.9 % (42.8-82.8); PLATELET COUNT 205 10^3/uL (134-434); RDW 13.8 % (11.6-15.6); WHITE BLOOD COUNT 15.1 K/mm3 (4.0-10.0)
[2022-06-08] MEDS ORDERED: DIPHTH,PERTUSS(ACELL),TET 0.5 ML DISP.SYRIN IM ONE (10:00)
[2022-06-08] MEDS ORDERED: FLU VACC QS2022-23(6MOS UP)/PF 60 MCG/0.5 ML SYRINGE IM ONE (10:00)
[2022-06-08] MEDS: oxyCODONE HCL 5 MG TABLET PO PRN ×2 (10:37→20:29)
[2022-06-08] MEDS ORDERED: SENNOSIDES/DOCUSATE COMBO (SENNA PLUS) TABLET (UD) PO PRN (22:00)
[2022-06-09] MEDS: oxyCODONE HCL 5 MG TABLET PO PRN (03:19)
[2022-06-09] MEDS: ACETAMINOPHEN 325 MG TABLET (FP) PO PRN (09:42)
[2022-06-09 10:46] VITALS: BP 118/66; PULSE 54; RESP 16; TEMP 97.7
== END 2022-06-09 13:11 | disposition home or self-care (01) | DRG 560 ==
LOC: JLDR 09:38 → J3W 06-07 23:20
PROVIDERS: ADMIT Obstetrics & Gynecology; ATTEND Obstetrics & Gynecology
PROC: 10E0XZZ Delivery of Products of Conception, External Approach (ICD-10-PCS; principal; 2022-06-07)
PROC: 3E0P7VZ Introduction of Hormone into Female Reproductive, Via Natural or Artificial Opening (ICD-10-PCS; 2022-06-07)
PROC: 3E0DXGC Introduction of Other Therapeutic Substance into Mouth and Pharynx, External Approach (ICD-10-PCS; 2022-06-07)
PROC: 10907ZC Drainage of Amniotic Fluid, Therapeutic from Products of Conception, Via Natural or Artificial Opening (ICD-10-PCS; 2022-06-07)
DX: O48.0 Post-term pregnancy (principal); O41.03X0 Oligohydramnios, third trimester, not applicable or unspecified; Z3A.40 40 weeks gestation of pregnancy; Z37.0 Single live birth
CPT/HCPCS: 36415; 36600; 59409; 80048; 82803; 85025; 85610; 85730; 86780; 86850; 86900; 86901; 90715; C9803-CS; G0008; Q2036; U0003; U0005

== ENCOUNTER 2023-09-10 14:34 | Emergency (ER) | payer OTHER ==
[2023-09-10 14:40] VITALS: BP 115/71; PULSE 71; RESP 19; TEMP 98; BMI 25.7
[2023-09-10] MEDS ORDERED: ACETAMINOPHEN INJECTION 100 ML IVPB ONE (15:24)
[2023-09-10] MEDS: ACETAMINOPHEN 1000 MG/100 ML BAG IVPB ONE (15:24)
[2023-09-10] MEDS: SODIUM CHLORIDE 0.9% 500 ML INFUS.BAG IV ONE (15:24)
[2023-09-10 15:52] LABS: PH,URINE 6.5 (5.0-8.0); URINE APPEARANCE CLEAR; URINE BILIRUBIN NEGATIVE (NEGATIVE); URINE COLOR YELLOW; URINE GLUCOSE (UA) NEGATIVE (NEGATIVE); URINE KETONE NEGATIVE (NEGATIVE); URINE LEUK ESTERASE NEGATIVE (NEGATIVE); URINE NITRITE NEGATIVE (NEGATIVE); URINE PROTEIN NEGATIVE (NEGATIVE); URINE UROBILINOGEN 0.2 mg/dL (0.2-1.0)
[2023-09-10 15:53] LABS: BASO % 0.3 % (0-2.0); EOS % 0.8 % (0-4.5); HEMATOCRIT 35.1 % (32.4-45.2); HEMOGLOBIN 12.2 GM/dL (10.7-15.3); LYMPH % 22.8 % (8-40); MCH 31.8 pg (25.7-33.7); MCHC 34.7 g/dl (32.0-36.0); MEAN CELL VOLUME 91.7 fl (80-96); MEAN PLT VOLUME 8.2 fl (7.5-11.1); MONO % 6.3 % (3.8-10.2); NEUT % 69.8 % (42.8-82.8); PLATELET COUNT 271 10^3/uL (134-434); RBC 3.82 M/mm3 (3.60-5.2); RDW 13.1 % (11.6-15.6); WHITE BLOOD COUNT 7.9 K/mm3 (4.0-10.0)
[2023-09-10 16:25] LABS: POTASSIUM 3.9 mmol/L (3.5-5.1)
[2023-09-10 16:27] LABS: CALCIUM 8.7 mg/dL (8.5-10.1)
[2023-09-10 16:29] LABS: ALBUMIN 2.9 g/dl (3.4-5.0); BLOOD UREA NITROGEN 7.6 mg/dL (7-18); MAGNESIUM 2.1 mg/dL (1.8-2.4)
[2023-09-10 16:32] LABS: CREATININE 0.4 mg/dL (0.55-1.3)
[2023-09-10 16:33] LABS: BILIRUBIN,TOTAL 0.3 mg/dL (0.2-1); TOT PROT 6.6 g/dl (6.4-8.2)
== END 2023-09-10 18:35 | disposition home or self-care (01) ==
LOC: JER 14:34
PROC: 3E033NZ Introduction of Analgesics, Hypnotics, Sedatives into Peripheral Vein, Percutaneous Approach (ICD-10-PCS; principal; 2023-09-10)
DX: O99.892 Other specified diseases and conditions complicating childbirth (principal); R07.81 Pleurodynia; R51.9 Headache, unspecified; Z3A.22 22 weeks gestation of pregnancy
CPT/HCPCS: 36415; 71046-TC-FY; 80053; 81003; 83735; 85025; 86850; 86900; 86901; 87086; 99284-25; J0131

== ENCOUNTER 2024-12-15 05:38 | Day surgery (SDC) | payer OTHER ==
[2024-12-08 16:57] VITALS: BMI 29.2
[2024-12-15] MEDS ORDERED: PROPOFOL 20 ML ONE ×2 (10:36→11:14)
[2024-12-15] MEDS ORDERED: MIDAZOLAM HCL 2 MG/2 ML SINGLE DOSE VIAL ONE (10:36)
[2024-12-15] MEDS ORDERED: ONDANSETRON 4 MG/2 ML VIAL IVPUSH PRN (10:45)
[2024-12-15] MEDS ORDERED: oxyCODONE HCL 5 MG TABLET PO PRN (10:45)
[2024-12-15] MEDS ORDERED: ACETAMINOPHEN INJECTION 100 ML ONE (10:46)
[2024-12-15] MEDS ORDERED: BUPIVACAINE HCL/PF 0.5% (5MG/ML) 10 ML VIAL ONE (10:49)
[2024-12-15] MEDS ORDERED: DEXAMETHASONE SOD PHOSPHATE 4 MG/1 ML VIAL ONE (11:20)
[2024-12-15] MEDS ORDERED: ONDANSETRON 4 MG/2 ML VIAL ONE ×2 (11:20→11:47)
[2024-12-15] MEDS: BUPIVACAINE HCL/PF 0.5% (5MG/ML) 10 ML VIAL IJ ONE ×2 (11:31)
[2024-12-15] MEDS ORDERED: NEOSTIGMINE METHYLSULFATE 0.5 MG/1 ML - 10 ML MDV ONE (11:46)
[2024-12-15] MEDS ORDERED: GLYCOPYRROLATE 0.2 MG/1 ML VIAL ONE (11:47)
[2024-12-15] MEDS: LACTATED RINGERS SOLUTION 1,000 ML IV SCH (12:20)
[2024-12-15 14:05] VITALS: RESP 18
[2024-12-15 14:43] VITALS: BP 105/61; PULSE 67; TEMP 97
== END 2024-12-15 15:15 | disposition home or self-care (01) ==
LOC: JASU-SURG 05:38
PROVIDERS: ATTEND Student in an Organized Health Care Education/Training Program
PROC: 0UT74ZZ Resection of Bilateral Fallopian Tubes, Percutaneous Endoscopic Approach (ICD-10-PCS; principal; 2024-12-15 11:00)
DX: Z30.2 Encounter for sterilization (principal)
CPT/HCPCS: 81025; 88305-TC; 94760; J0131